=== PATIENT | female | born 1945 | race Caucasian/White ===

== ENCOUNTER 2016-03-04 11:48 | Emergency (ER) | payer SELFPAY ==
[2016-03-04] MEDS ORDERED: IOPAMIDOL 370 (76%) IV.SOLN 150 ML IV ONE (11:49)
[2016-03-04] MEDS ORDERED: PANTOPRAZOLE SODIUM 40 MG VIAL IV ONE (12:43)
[2016-03-04] MEDS ORDERED: SODIUM CHLORIDE 0.9% 1,000 ML ONE (12:43)
[2016-03-04 12:50] LABS: ABSOLUTE NEUTROPHIL COUNT 3.8 K/mm3 (1.8-7.7); BASO # 0.1 K/mm3 (0.0-0.2); EOS # 0.2 (0.0-0.5); EOS % 3.9 % (0.9-2.9); HEMATOCRIT 44.1 % (37.0-47.0); IMM NEUT% 0.2 % (0-1); LYMPH # 1.5 (1.0-4.8); LYMPH % 25.4 % (15-45); MEAN CELL VOLUME 90.6 fl (81.0-99.0); MEAN CORPUSCULAR HEMOGLOBIN 28.7 pg (27.0-31.0); MEAN CORPUSCULAR HGB CONC 31.7 g/dl (33.0-37.0); MEAN PLATELET VOLUME 9.7 fl (7.4-10.4); MONO # 0.3 (0.0-0.8); MONO % 5.7 % (4-12); NEUT % 63.8 % (43-75); PLATELET COUNT 266 K/mm3 (130-400); RED CELL DISTRIBUTION WIDTH 12.7 % (11.5-14.5)
[2016-03-04 13:02] LABS: ALB/GLOB RATIO 1.3 (>1.0); ALBUMIN 4.3 gm/dL (3.5-5.7); CALCIUM 9.9 mg/dL (8.6-10.3)
--- NOTE | 2016-03-04 14:00 | CT ---
Exams: CT angiogram chest, abdomen and pelvis for dissection COMPARISON: None INDICATION: Upper abdominal pain radiating to the back. TECHNIQUE: CT angiogram of the chest, abdomen and pelvis was obtained following the administration 155 mL Isovue-370 intravenous contrast using a CT angiogram protocol which was supplemented with MIP reformations from the CT workstation. FINDINGS: Examination is slightly limited due to motion artifact. There is no aortic dissection. The ascending aorta measures 4 cm in maximum diameter. There is mild tortuosity of the descending thoracic aorta. Mild to moderate atheromatous plaques are seen within the abdominal aorta and iliac arteries. There is no abdominal aortic aneurysm. The celiac artery and SMA are widely patent. The ANDREZ is present. There are 2 right-sided renal arteries and a single left-sided renal artery. The arteries appear widely patent. Postsurgical changes are noted within the right colon. Anastomosis is widely patent. There is sigmoid diverticulosis without evidence of diverticulitis. There is no bowel obstruction, free air or free intraperitoneal fluid. Uterus is absent. There is no adnexal mass. No pelvic lymphadenopathy or fluid collection. Urinary bladder unremarkable. High density material within the gallbladder is noted, likely reflecting calculi. The liver, spleen, pancreas, kidneys, and adrenal glands are unremarkable. There is facet arthropathy within the lower lumbar spine and degenerative disc disease at the lumbosacral junction. Calcified breast implants are noted. There is no significant mediastinal, hilar or axillary lymphadenopathy by size criteria. Coronary calcifications are noted within the LAD. There is minor bibasilar atelectasis. There is no focal airspace disease. There is no pleural or pericardial effusion. IMPRESSION: No evidence of aortic dissection or other acute findings identified to explain patient's symptoms. Several chronic incidental findings as above, including cholelithiasis, post surgical changes within the right colon, diverticulosis and hysterectomy. Findings were discussed with Dr. Elizabeth at 1346 hours 03/04/2016.
== END 2016-03-04 14:47 | disposition home or self-care (01) ==
LOC: ED 11:48
DX: R10.10 Upper abdominal pain, unspecified (principal); R11.0 Nausea
CPT/HCPCS: 83690; 85025; 80053; 84484; 74174; 71275; 96375 ×2; 99284 ×2; 96374; 93005; C9113; J7030; Q9967